=== PATIENT | female | born 1960 | race Caucasian/White ===

== ENCOUNTER 2018-07-25 13:30 | Inpatient (IN) | payer BC ==
[2018-08-08] MEDS ORDERED: ACETAMINOPHEN 1,000 MG/100 ML BTL IV ONE (06:00)
[2018-08-08] MEDS ORDERED: VANCOMYCIN HCL 1,000 MG in DEXTROSE 5 % IN WATER 250 ML IVPB ONE ×2 (06:00)
[2018-08-08] MEDS ORDERED: MECLIZINE 25 MG TABLET PO ONE (06:00)
[2018-08-08] MEDS ORDERED: CEFAZOLIN 2 Gram 2 GM/50 ML BAG IVPB ONE (06:00)
[2018-08-08] MEDS ORDERED: METOCLOPRAMIDE 10 MG TABLET PO ONE (06:00)
[2018-08-08] MEDS ORDERED: FAMOTIDINE 20MG TABLET PO ONE (06:00)
[2018-08-08 10:40] LABS: ABO GROUP A; ANTIBODY SCREEN NEGATIVE (NEGATIVE); RH TYPE POSITIVE
[2018-08-08] MEDS ORDERED: TRAMADOL HCL 50 MG TABLET PO PRN (15:15)
[2018-08-08] MEDS ORDERED: BISACODYL 10 MG SUPP RC PRN (15:15)
[2018-08-08] MEDS ORDERED: HYDROCODONE/APAP 7.5/325MG TABLET PO PRN (15:15)
[2018-08-08] MEDS ORDERED: NALOXONE 0.4 MG/1 ML VIAL IVP PRN (15:15)
[2018-08-08] MEDS ORDERED: AL HYDROX/MAG HYDROX 30ML UD PO PRN (15:15)
[2018-08-08] MEDS ORDERED: HYDROMORPHONE HCL 2 MG/ML VIAL IM PRN (15:15)
[2018-08-08] MEDS ORDERED: METOCLOPRAMIDE HCL 10 MG/2 ML VIAL IVP PRN (15:15)
[2018-08-08] MEDS ORDERED: ACETAMINOPHEN W/ CODEINE 300MG/30MG TABLET PO PRN ×2 (15:15)
[2018-08-08] MEDS ORDERED: ZOLPIDEM TARTRATE 5 MG TABLET PO PRN (15:15)
[2018-08-08] MEDS ORDERED: DIPHENHYDRAMINE HCL 25 MG CAPSULE PO PRN (15:15)
[2018-08-08] MEDS ORDERED: PROMETHAZINE HCL 12.5 MG in 0.9 % SODIUM CHLORIDE 100ML 50 ML IVPB PRN (15:15)
[2018-08-08] MEDS ORDERED: KETOROLAC 30 MG/ML VIAL IVP PRN ×2 (15:15)
[2018-08-08] MEDS ORDERED: MAGNESIUM HYDROXIDE 30 ML UDC PO PRN (15:15)
[2018-08-08] MEDS ORDERED: ACETAMINOPHEN W/ CODEINE 300MG/60MG TABLET PO PRN ×2 (15:15)
[2018-08-08] MEDS ORDERED: HYDROCODONE/APAP 5/325MG TABLET PO PRN ×2 (15:15)
[2018-08-08] MEDS ORDERED: DEXTROSE 5 % AND 0.9 % NACL 1,000 ML IV PRN (15:30)
[2018-08-08] MEDS ORDERED: TRANEXAMIC ACID 1,000 MG/10 ML ML IV ONE (15:47)
[2018-08-08] MEDS ORDERED: BUPIVACAINE 0.5% W/EPI MPF 30 ML VIAL IVP ONE (15:47)
[2018-08-08] MEDS ORDERED: KETOROLAC 30 MG/ML VIAL IVP ONE (15:54)
[2018-08-08] MEDS ORDERED: EPHEDRINE SULFATE 50 MG/ML ML IV ONE (15:54)
[2018-08-08] MEDS ORDERED: PHENYLEPHRINE HCL 10 MG/ML VIAL IVP ONE (15:54)
[2018-08-08] MEDS ORDERED: MIDAZOLAM HCL 2MG/2ML VIAL IV ONE (15:54)
[2018-08-08] MEDS ORDERED: LIDOCAINE 2% MDV (20MG/ML) 20ML VIAL IV ONE (15:54)
[2018-08-08] MEDS ORDERED: PROPOFOL 10 MG/ML VIAL IV ONE (15:54)
[2018-08-08] MEDS: HYDROMORPHONE HCL 2 MG/ML VIAL IM PRN ×3 (17:15→21:45)
--- NOTE | 2018-08-08 17:29 | Rehab Evaluation ---
Patient Information - Patient Information Diagnosis: L hip OA Ordered Treatment: PT Evaluate and Treat Status: Initial Evaluation Surgery: Yes (L THR) Date of Surgery: 08/08/18 Past Medical/Surgical Hx: PAST MEDICAL/SURGICAL HISTORY Past Surgical History Abigail Hayes Laparoscopy Left knee scope cscope PMH - Respiratory Hx Respiratory Disorders Yes Hx Asthma Yes: well controlled with inhaler PMH - Cardiovascular Hx Cardiovascular Disorders Yes Hx Hypertension Yes: on meds good control Exercise Tolerance Fair PMH - Neuro Hx Neurological Disorders Yes Hx Dizziness Yes: at times PMH - GI Hx Gastrointestinal Disorders Yes Hx Crohn's Disease Yes: controlled with meds PMH - Hx Genitourinary Disorders Yes Hx Urinary Tract Infection Yes: UTI in that went septic Comment: S/P hyst 2004 PMH - Endocrine Hx Endocrine Disorders Yes Hx Thyroid Disease Yes: on meds PMH - Musculoskeletal Hx Musculoskeletal Disorders Yes Hx Arthritis Yes: RA PMH - Psych Hx Psychiatric Problems Yes Hx Depression Yes: on meds PMH - Hematology/Oncology Hx Hematology/Oncology No Disorders Premorbid Status: Detail (The patient was independent with all mobility prior to surgery.) Social History: Detail (The patient lives in a one story house with a loft and basement with spouse. The house has 2 to 3 steps at the enterance and a flight of 13 to go the loft and basement. Both flights have one railing to hang onto. The bathroom is equipped with a tub/shower combination , shower bench and standard toilet. The patient has a riser seat, front wheeled walker and SBQ.) Precautions: [place], Fall, Other (THR precautions.) - Time With Patient Total Time Spent With Patient (Min): 30 Treatment Procedures: Detail (Initial Evaluation, ther. activity) Subjective Information - Subjective Information Per Patient (The patient had no complaints of pain but did complain of lightheadness with sitting and standing.) Objective Data - Mental Status Patient Orientation: Oriented x3 - Visual Perception Appears within normal limits for therapeutic activities - ROM Not within normal limits (The patient's L hip AROM was within THR precautions. All other LE AROM is WNL.) - Strength/Tone Not within normal limits (The patient's R LE strength was not tested but was functional ie: pt. was able to complete a SLR. The patient's L LE strength was WNL.) - Bed Mobility Independent (The patient was independent with supine to and from sit transfer and scooting up in bed.) - Transfers Independent (The patient was independent with sit to and from stand transfer.) - Balance Balance Sitting: Good Balance Standing: Good - Sensation Intact - Gait Detail (The patient declined to ambulate at this time due to lightheadness and increased complaints of groin pain. The patient was instructed to ambulate with Nursing staff this pm if she needed to go to the bathroom.) Therapy Assessment - Therapy Assessment Detail (The patient was independent with bed mobility and transfers. The patient did not ambulate this afternoon due to symptoms of lightheadness. Feel the patient will progress well with mobility.) Patient Education - Patient Education Teaching Topic: Precautions (The patient was able to correctly identify all THR precautions.) Response: Return Demonstration Teaching Method: Discussion, Handout Teaching Recipient: Patient Barriers To Learning: None Problem List - Problem List Physical Therapy Problem List: Detail ( 1) Decreased L LE strength 2) Impaired ambulation s/p surgery) Goals - Goals Physical Therapy Goals: 1) The patient will ambulate independently with appropriate assistive device household distances. 2)The patient will ambulate on stairs using proper technique with supervision for safety. 3) The patient will be independent with THR HEP. Prognosis - Prognosis Good Plan - Plan Physical Therapy Plan: PT 1-2 sessions for gait training on levels and stairs and instruction in HEP.
[2018-08-08] MEDS: BREO (FLUTICASONE/VILANTEROL) 200MCG/25MCG INHALER INH SCH (21:36)
[2018-08-08] MEDS: ATORVASTATIN 20 MG TABLET PO SCH (21:45)
[2018-08-08] MEDS: FERROUS SULFATE 325 MG TAB PO SCH (21:45)
[2018-08-08] MEDS: VANCOMYCIN HCL 1,000 MG in DEXTROSE 5 % IN WATER 250 ML IVPB SCH ×2 (21:46)
[2018-08-08] MEDS: PANTOPRAZOLE SODIUM 40 MG TABLET PO SCH (21:52)
[2018-08-08] MEDS: DOCUSATE SODIUM 100 MG CAPSULE PO SCH (21:53)
[2018-08-09] MEDS: HYDROCODONE/APAP 7.5/325MG TABLET PO PRN ×2 (01:36→06:23)
[2018-08-09] MEDS: HYDROMORPHONE HCL 2 MG/ML VIAL IM PRN (04:22)
--- NOTE | 2018-08-09 05:11 | RADIOLOGY REPORT ---
EXAM: LEFT HIP HISTORY: POSTOP. TECHNIQUE: A single AP view of the left hip was performed. FINDINGS: The patient is status post left hip arthroplasty. No complicating process. IMPRESSION: STATUS POST LEFT HIP ARTHROPLASTY. NO COMPLICATING PROCESS. JOB NUMBER: [id number] MTDD
[2018-08-09] MEDS: LEVOTHYROXINE SODIUM 50 MCG TABLET PO SCH (06:23)
[2018-08-09] MEDS: PANTOPRAZOLE SODIUM 40 MG TABLET PO SCH ×2 (06:23→21:56)
[2018-08-09 06:47] LABS: HEMATOCRIT 35.1 % (35.0-47.0); HEMOGLOBIN 10.3 gm/dl (11.6-16.0)
[2018-08-09] MEDS: DOCUSATE SODIUM 100 MG CAPSULE PO SCH ×2 (09:39→21:57)
[2018-08-09] MEDS: FERROUS SULFATE 325 MG TAB PO SCH ×2 (09:42→21:56)
[2018-08-09] MEDS: CELECOXIB 100 MG CAPSULE PO SCH (09:42)
[2018-08-09] MEDS: ESCITALOPRAM 10 MG TABLET PO SCH (09:43)
[2018-08-09] MEDS: ATENOLOL 25 MG TABLET PO SCH (09:43)
[2018-08-09] MEDS: VANCOMYCIN HCL 1,000 MG in DEXTROSE 5 % IN WATER 250 ML IVPB SCH ×2 (09:43)
[2018-08-09] MEDS: RIVAROXABAN 10 MG TABLET PO SCH (09:43)
--- NOTE | 2018-08-09 09:45 | Physical Therapy Tx Note ---
Physical Therapy Tx Note - Treatment Note Tolerated: Fair Physical Therapy Tx Note: Detail (The patient was in bed and reported her pain was not too bad. The patient continues to feel lightheaded when sitting. The patient ambulated to bathroom (7 feet x 2 ) independently WBAT on the L LE. The patient experienced increased lightheadedness after ambulating. The patient completed THR exercises including gluteal sets, quad sets, hamstring sets, ankle pumps, supine hip abduction and heel slides. Will see patient later this pm to see how she is feeling.) Physical Therapy Problem List: Detail ( 1) Decreased L LE strength 2) Impaired ambulation s/p surgery) Physical Therapy Goals: 1) The patient will ambulate independently with appropriate assistive device household distances. 2)The patient will ambulate on stairs using proper technique with supervision for safety. 3) The patient will be independent with THR HEP. Physical Therapy Plan: PT 1-2 sessions for gait training on levels and stairs and instruction in HEP.
[2018-08-09] MEDS: ONDANSETRON HCL IV 4 MG/2 ML VIAL IVP PRN ×2 (10:31→17:19)
--- NOTE | 2018-08-09 10:36 | Rehab Evaluation ---
Patient Information - Patient Information Diagnosis: left hip avascular necrosis Ordered Treatment: OT Evaluate and Treat Status: Initial Evaluation Surgery: Yes (L THR) Date of Surgery: 08/08/18 Past Medical/Surgical Hx: PAST MEDICAL/SURGICAL HISTORY Past Surgical History Appy Hyst Laparoscopy Left knee scope cscope PMH - Respiratory Hx Respiratory Disorders Yes Hx Asthma Yes: well controlled with inhaler PMH - Cardiovascular Hx Cardiovascular Disorders Yes Hx Hypertension Yes: on meds good control Exercise Tolerance Fair PMH - Neuro Hx Neurological Disorders Yes Hx Dizziness Yes: at times PMH - GI Hx Gastrointestinal Disorders Yes Hx Crohn's Disease Yes: controlled with meds PMH - Hx Genitourinary Disorders Yes Hx Urinary Tract Infection Yes: UTI in that went septic Comment: S/P hyst 2004 PMH - Endocrine Hx Endocrine Disorders Yes Hx Thyroid Disease Yes: on meds PMH - Musculoskeletal Hx Musculoskeletal Disorders Yes Hx Arthritis Yes: RA PMH - Psych Hx Psychiatric Problems Yes Hx Depression Yes: on meds PMH - Hematology/Oncology Hx Hematology/Oncology No Disorders Premorbid Status: Detail (The patient was independent with all mobility, meal prep, laundry and home mgmt prior to surgery. Her spouse will be available to assist with IADLs after discharge.) Social History: Detail (The patient lives with spouse in a one story house with a loft, main level and basement. The house has 3 steps with horace railings at the entrance and a flight of 13 to go the loft. The bathroom is equipped with a tub/shower combination, shower bench and hand held shower and standard toilet with riser that has handles. She has a front wheeled walker and quad cane.) Precautions: [place], Fall, Other (THR precautions.) - Time With Patient Total Time Spent With Patient (Min): 50 Treatment Procedures: Detail (OT eval low complexity) Subjective Information - Subjective Information Per Patient Objective Data - Pain Pain Present: Yes (03/01) - Mental Status Patient Orientation: Oriented x3 - Visual Perception Appears within normal limits for therapeutic activities - ROM Within normal limits (Horace UE AROM WNL) - Strength/Tone Within normal limits (Horace UE strength WNL) - Coordination Appears within normal limits for therapeutic activities - Bed Mobility Independent (Ind with supine to sit.) - Transfers Independent (Ind with sit to stand from EOB.) - Balance Balance Sitting: Good Balance Standing: Good - Sensation Intact - ADL's/IADL's Detail (Pt educated and able to demonstrate learning of modified LE dressing techniques using filer metal patterns and sock aid while maintaining total hip precautions. She was able to doff slipper socks and don underwear, pants, socks and tennis shoes with adaptive equipment and verbal direction. Pt was vended a filer metal patterns. Reviewed shower and kitchen safety and modifications, pt verbalized understanding.) Therapy Assessment - Therapy Assessment Detail (Pt able to demonstrate Ind with modified LE dressing techniques using adaptive equipment while maintaining total hip precautions.) Problem List - Problem List Physical Therapy Problem List: Detail ( 1) Decreased L LE strength 2) Impaired ambulation s/p surgery) Occupational Therapy Problem List: Detail (No current IP OT problems identified. ) Goals - Goals Physical Therapy Goals: 1) The patient will ambulate independently with appropriate assistive device household distances. 2)The patient will ambulate on stairs using proper technique with supervision for safety. 3) The patient will be independent with THR HEP. Occupational Therapy Goals: No current IP OT goals identified. Prognosis - Prognosis Good Plan - Plan Physical Therapy Plan: PT 1-2 sessions for gait training on levels and stairs and instruction in HEP. Occupational Therapy Plan: No further IP OT recommended at this time. Thank you for this referral.
[2018-08-09] MEDS ORDERED: 0.9 % SODIUM CHLORIDE 1000ML 1,000 ML IV SCH (11:15)
--- NOTE | 2018-08-09 13:45 | Physical Therapy Tx Note ---
Physical Therapy Tx Note - Treatment Note Physical Therapy Tx Note: Detail (The patient was in bed with Nursing Staff present when PT arrived. The patient had just walked to bathroom and was experiencing level 9 pain and continued to be lightheaded. Will plan on seeing patient tomorrow .) Physical Therapy Problem List: Detail ( 1) Decreased L LE strength 2) Impaired ambulation s/p surgery) Physical Therapy Goals: 1) The patient will ambulate independently with appropriate assistive device household distances. 2)The patient will ambulate on stairs using proper technique with supervision for safety. 3) The patient will be independent with THR HEP. (Goal Met) Physical Therapy Plan: PT 1-2 sessions for gait training on levels and stairs and instruction in HEP.
[2018-08-09] MEDS ORDERED: BUPIVACAINE 0.5% W/EPI MPF 30 ML VIAL IVP ONE ×2 (14:35→14:36)
[2018-08-09] MEDS ORDERED: VANCOMYCIN HCL 1 GM VIAL IVPB ONE ×2 (14:35→14:36)
[2018-08-09] MEDS ORDERED: TRANEXAMIC ACID 1,000 MG/10 ML ML IV ONE ×2 (14:35→14:36)
[2018-08-09] MEDS ORDERED: BUPIVACAINE LIPOSOME 266MG/20ML VIAL IV ONE ×2 (14:35→14:36)
[2018-08-09] MEDS: TRAMADOL HCL 50 MG TABLET PO PRN (19:59)
--- NOTE | 2018-08-09 20:53 | Operative Note ---
DATE OF SURGERY: 08/08/2018 PREOPERATIVE DIAGNOSIS: LEFT HIP AVASCULAR NECROSIS SECONDARY TO STEROID USE; TREATMENT FOR CROHN'S. POSTOPERATIVE DIAGNOSIS: LEFT HIP AVASCULAR NECROSIS SECONDARY TO STEROID USE; TREATMENT FOR CROHN'S. PROCEDURE: LEFT TOTAL HIP ARTHROPLASTY. SURGEON: NIKO ROMANO M.D. 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 COMPLICATIONS: NONE. BLOOD LOSS: 200 ML. OPERATIVE FINDINGS: SOFT SUPERIOR FEMORAL HEAD ARTICULAR SURFACE WITHOUT COMPLETE COLLAPSE. COMPONENTS PLACED: 2 gm Vancomycin. Cement. [employer] Synergy cemented total hip arthroplasty system. Size 12 femoral stem high-offset with a 32 -3 mm Oxinium femoral head component, a 50 mm three-hole reflection acetabular shell component with two screw caps, a centrally threaded screw cap, and a 35 degree hooded high-crosslinked polyethylene liner. INDICATIONS FOR OPERATION: This is a 58-year-old female who has a long complicated history of inflammatory disease. She has previously been diagnosed with Crohn's. She was transferred up from [facility] months ago. I was cardiac catheterization technician and was consulted. She had multiple inflammatory workup and labs, which were all basically positive; HLA-B27, rheumatoid factor, sed rate and white count has been elevated on and off. She was thought to possibly have infection early on. She was getting IV antibiotics and treated outpatient IV for an additional six more weeks of IV antibiotics. I felt that it likely was not infectious at all, but inflammatory. MRI as well during her hospital stay showed avascular necrosis in the femoral head. She complained of achy pain and limping this entire time and I felt that one option for her would be hip replacement at this point and she agreed to proceed. I explained all the risks and benefits thoroughly in detail for her diagnosis and procedures including but not limited to infection, nerve injury, vessel injury, persistent pain, persistent numbness and tingling in her hip, periprosthetic fracture, need for resection arthroplasty should the components become infected or loosened, nerve injury, vessel injury, blood clot, limb length discrepancy, and need for anticoagulation and the risks associated with these medications and all of her questions were answered. Rehab and course were outlined and she agreed to proceed. PROCEDURE: The patient was brought to the O.R. and placed in the right lateral decubitus position. Her left hip and lower extremity were prepped and draped in sterile fashion. Her left leg was prepped again with ChloraPrep after it was draped. Intraoperative time-out was performed. Next, with a posterior approach, a small incision was marked over the gluteal fascia and infiltrated with 0.5% Marcaine with Epinephrine. Next, the skin and subcutaneous tissues were dissected down to the gluteal fascia. The gluteal fascia was split longitudinally and the subgluteal plane was bluntly dissected. We brought in a self-retainer. I identified the sciatic nerve, took off the short external rotators and protected the sciatic nerve at all times. Next, we dislocated the femoral head. we resected about 1.5 cm above the lesser trochanter. We inserted the boxed osteotome and then started reaming by hand with a 7 mm working in 1 mm increments by power up to a size 12. We stopped there. We broached to 10 and calcar planed in 15 degrees of anteversion, then an 11 and then a 12 and had good fit there and we stopped there. Attention was turned to the acetabulum. We placed the inferior acetabular retractor. We released the labrum and capsule around the circumference of the hip and started reaming in 1 mm increments in 45 degrees of inclination and 20 degrees of anteversion until we reamed up to a size 49. We stopped there and trialed a 50 and had a good fit. Next, we changed gloves. Irrigated copiously. We placed some bone graft centrally and impacted down the real acetabular shell component using the helicopter guide, again in 45 of inclination and 20 degrees of anteversion until it was flush with the medial wall. We verified its orientation. Next we drilled the posterior central and superior quadrant screw hole and we inserted a 40 mm screw and had excellent purchase. Next, we placed the trial liner and did a trial reduction. The best combination of range of motion and stability was with a 32 -3 mm head component. This allowed for good abductor tensioning without over-stuffing. Flexion to 90 and internal rotation to 80 before the hip dislocated. Stability with extension in external rotation and symmetric leg lengths and this was the sizes we used. Next, we mixed cement. We removed all trial components. We irrigated the acetabulum copiously. We placed the two screw caps and the centrally threaded screw cap. We impacted down the real acetabular liner with the ellis in the posterior superior quadrant. We irrigated the femoral canal copiously. We placed a cement restrictor distally at appropriate depth and injected the cement in the 3rd generation cement technique. We removed the suction catheter and impacted down the real femoral stem with the collar flush to the medial calcar in 15 degrees of anteversion and held it there until the cement hardened. Next, we cleaned and dried the trunnion. We impacted down the real femoral head component. We re-reduced the hip. Final range of motion revealed the same. We irrigated the hip copiously. We repaired the gluteal fascia with a running # 2 Quill suture. We irrigated again and closed the skin deep with interrupted #2- 0 Vicryl securely and a sterile dressing was applied. A KEMAR dressing to be applied prior to discharge. The patient tolerated the procedure well. No intraoperative complications. All sponge, needle, and blade counts were correct. She will be discharged tomorrow and follow-up in two weeks. cc: Dipesh Curry JOB NUMBER: [id number] MTDD
[2018-08-09] MEDS: BREO (FLUTICASONE/VILANTEROL) 200MCG/25MCG INHALER INH SCH (21:45)
[2018-08-09] MEDS: ATORVASTATIN 20 MG TABLET PO SCH (21:56)
[2018-08-10] MEDS: TRAMADOL HCL 50 MG TABLET PO PRN ×2 (00:18→06:00)
[2018-08-10] MEDS: PANTOPRAZOLE SODIUM 40 MG TABLET PO SCH ×2 (06:00→21:03)
[2018-08-10] MEDS: LEVOTHYROXINE SODIUM 50 MCG TABLET PO SCH (06:00)
[2018-08-10 06:49] LABS: HEMATOCRIT 32.5 % (35.0-47.0); HEMOGLOBIN 9.7 gm/dl (11.6-16.0)
[2018-08-10] MEDS: ACETAMINOPHEN 325 MG TAB PO PRN ×2 (10:45→17:13)
[2018-08-10] MEDS: DOCUSATE SODIUM 100 MG CAPSULE PO SCH ×2 (10:46→23:13)
[2018-08-10] MEDS: FERROUS SULFATE 325 MG TAB PO SCH ×2 (10:46→21:03)
[2018-08-10] MEDS: RIVAROXABAN 10 MG TABLET PO SCH (10:47)
[2018-08-10] MEDS: CELECOXIB 100 MG CAPSULE PO SCH (10:47)
[2018-08-10] MEDS: ATENOLOL 25 MG TABLET PO SCH (10:47)
[2018-08-10] MEDS: ESCITALOPRAM 10 MG TABLET PO SCH (10:47)
--- NOTE | 2018-08-10 11:41 | Physical Therapy Tx Note ---
Physical Therapy Tx Note - Treatment Note Tolerated: Fair Total Time Spent With Patient: 25 Physical Therapy Tx Note: Detail (The patient was in bed when PT arrived. The patient ambulated with front wheeled walker, WBAT on the L LE to bathroom 7 feet with 2L with supervision for safety and then ambulated a distance of 35 feet x 2 . The patient returned to bed with O2 level at 87, level returned to 92 after less then 15 secs and with pursed lip breathing. The patient exhibited minimal shortness of breath with ambulation and minimal symptoms of lightheadedness. Will see patient this pm for ambulation/stair climbing.) Physical Therapy Problem List: Detail ( 1) Decreased L LE strength 2) Impaired ambulation s/p surgery) Physical Therapy Goals: 1) The patient will ambulate independently with appropriate assistive device household distances. 2)The patient will ambulate on stairs using proper technique with supervision for safety. 3) The patient will be independent with THR HEP. Physical Therapy Plan: PT 1-2 sessions for gait training on levels and stairs and instruction in HEP.
[2018-08-10 12:14] LABS: BLOOD UREA NITROGEN 12 mg/dL (6-20); CREATININE 0.7 mg/dL (0.5-0.9); EST GLOMERULAR FILTRATION RATE > 60 mL/min
[2018-08-10 12:15] LABS: TOTAL PROTEIN 5.6 g/dL (6.6-8.7)
[2018-08-10 12:17] LABS: GLUCOSE,RANDOM 70 mg/dL (74-109)
[2018-08-10 12:20] LABS: ALB/GLOB RATIO 1.1 (1.1-1.8); ALBUMIN 2.9 g/dL (4.0-5.0); ALKALINE PHOSPHATASE 63 U/L (35-104); ALT/SGPT 50 U/L (<33); AST/SGOT 35 U/L (10.0-35.0)
--- NOTE | 2018-08-10 14:49 | Physical Therapy Tx Note ---
Physical Therapy Tx Note - Treatment Note Tolerated: Good Total Time Spent With Patient: 25 Physical Therapy Tx Note: Detail (The patient was in bed when PT arrived. The patient ambulated with front wheeled walker a distance of 100 feet x 1 with 2L of O2 , WBAT on the L LE with supervision for safety only. The patient had minimal shortness of breath with ambulation and stated she had a slight feeling of lightheadedness. The patient's O2 sat's remained in the 90's with one brief drop to 89. The patient's performance was much improved with increased ambulation endurance. The patient declined stairs. Will see patient tomorrow for gait training on stairs.) Physical Therapy Problem List: Detail ( 1) Decreased L LE strength 2) Impaired ambulation s/p surgery) Physical Therapy Goals: 1) The patient will ambulate independently with appropriate assistive device household distances. 2)The patient will ambulate on stairs using proper technique with supervision for safety. 3) The patient will be independent with THR HEP. Physical Therapy Plan: PT 1-2 sessions for gait training on levels and stairs.
--- NOTE | 2018-08-10 16:15 | Consult ---
Consult Order Detail - Reason for Consult Consult Date: 08/10/18 - Chief Complaint Chief Complaint: LEFT HIP AVASCULAR NECROSIS HPI Consult - History of Present Illness Admitting Diagnosis: left hip avascular necrosis History of Present Illness: Mrs. Camargo is a 58 y/o female with admission for replacement of her left hip secondary to avascular necrosis. The patient had athroplasty procedure completed on 08/08/18. On day #3 admission the patient was noted to have increasing difficulty with respiration with saturations dropping into the 80s despite being on supplemental oxygen. The patient has been on several narcotic pain medications post-operatively, the frequency of which have now been reduced as a result of her breathing issues. The patient has been using the bedside spirometer and is continuing to get have daily doses of inhaled steroids/ bronchodilator. The patient reports having a history of asthma with daily use of Symbicort but says that she has not had an exacerbation in some time. She has a remote history of cigarette smoking and says she quit several years and reports a recent diagnosis of rheumatoid arthritis. On initial evaluation this afternoon the patient had an elevated d-dimer 1.[address] with PE protocol was ordered with no findings suggestive of PE. However , she did have a small pleural effusion and note of a small pericardial effusion. Internal medicine was consulted to assess the patient's low oxygen saturations and respiratory status. Past Medical History - SOCIAL HISTORY Smoking Status: Former smoker Drug Use: None - RESPIRATORY Hx Respiratory Disorders: Yes Hx Asthma: Yes (well controlled with inhaler) - CARDIOVASCULAR Hx Cardio Disorders: Yes Hx Hypertension: Yes (on meds good control) - NEURO Hx Neuro Disorders: Yes Hx Dizziness: Yes (at times) - GI Hx GI Disorders: Yes Hx Crohn's Disease: Yes (controlled with meds) - Hx Genitourinary Disorders: Yes Hx UTI: Yes (UTI in that went septic) Comment:: S/P hyst 2004 - ENDOCRINE Hx Endocrine Disorders: Yes Hx Thyroid Disease: Yes (on meds) - MUSCULOSKELETAL Hx Musculoskeletal Disorders: Yes Hx Arthritis: Yes (RA) - PSYCH Hx Psych Problems: Yes Hx Depression: Yes (on meds) - HEMATOLOGY/ONCOLOGY Hx Hematology/Oncology Disorders: No Family Medical History Any Significant Family History?: No H&P Meds - Home Medications and Allergies Allergies Allergy/AdvReac Type Severity Reaction Status Date / Time Sulfa (Sulfonamide Allergy HIVES Verified 07/25/18 15:28 Antibiotics) diphenhydramine AdvReac RASH Verified 07/25/18 15:28 [From Benadryl] Physical Exam - Vital Signs Vital Signs: Vital Signs - Last 24 Hrs Temp Pulse Pulse Resp BP BP Pulse Ox 08/10/18 13:00 98.1 F 91 H 16 104/66 97 08/10/18 09:30 95 08/10/18 09:00 18 08/10/18 08:45 98.3 F 106 H 18 101/72 93 L 08/10/18 05:00 99.7 F H 102 H 16 100/63 94 L 08/09/18 21:50 78 18 96 08/09/18 21:00 97.3 F L 95 H 16 96/68 96 08/09/18 17:10 16 93 L 08/09/18 17:00 100 H 14 92/63 85 L - General General Appearance: Alert, Oriented x3, Cooperative, No acute distress - Head Head exam: Normal inspection Head exam detail: negative: Abrasion, Contusion - Eye Eye exam: Normal appearance, PERRL Pupils: Normal accommodation - Respiratory Respiratory exam: Normal lung sounds bilaterally, Other (sats 92% on 2 liters nasal cannula ). negative: Respiratory distress - Cardiovascular Cardiovascular Exam: Regular rate, Normal rhythm, Normal heart sounds Peripheral Pulses: 3+: Radial (R), Radial (L), Dorsalis Pedis (R), Dorsalis Pedis (L) - GI/Abdominal GI/Abdominal exam: Soft, Normal bowel sounds. negative: Tenderness - Neurological Neurological exam: CN II-XII intact, Oriented X3 - Psychiatric Psychiatric exam: Normal affect, Normal mood - Skin Skin exam: Dry, Intact, Normal color, Warm Results - Labs Result Diagrams: 08/10/18 06:27 08/10/18 06:27 Labs Last 24 Hours: Laboratory Results - last 24 hr 08/10/18 08/10/18 08/10/18 06:27 06:27 06:27 Hgb 9.7 L Hct 32.5 L D-Dimer 1.18 H Sodium 134 L Potassium 4.0 Chloride 97 L Carbon Dioxide 24.0 Anion Gap 13.0 BUN 12 Creatinine 0.7 Estimated GFR > 60 Random Glucose 70 L Calcium 8.5 L Total Bilirubin 0.50 AST 35 ALT 50 H Alkaline Phosphatase 63 Total Protein 5.6 L Albumin 2.9 L Globulin 2.7 Albumin/Globulin Ratio 1.1 Assessment and Plan - Assessment and Plan (1) Low oxygen saturation Current Visit: Yes Status: Acute Base Code: R79.81 - ABNORMAL BLOOD-GAS LEVEL Comment: 08/09/19: - titrate oxygen to keep saturations > 92% - continue with incentive spirometer, ambulation and daily PT/OT - reduce or discontinue narcotic pain medication and other sedative hypnotics. (2) Mild asthma exacerbation Current Visit: Yes Status: Acute Base Code: J45.901 - UNSPECIFIED ASTHMA WITH (ACUTE) EXACERBATION Comment: 08/09/19: - albuterol Q4h ARMANDO, Breo ellipta daily. - no indication for steroid or antibiotic use at this point. - will continue to monitor saturations and titrate oxygen accordingly. - Disposition Disposition: All other management as per the primary admitting team. Please call for any other questions or concerns.
--- NOTE | 2018-08-10 17:25 | Physical Therapy Tx Note ---
Physical Therapy Tx Note - Treatment Note Tolerated: Other (Decreased sat. levels when descending stairs (low as 65).) Total Time Spent With Patient: 30 Physical Therapy Tx Note: Detail (The patient ambulated with front wheeled walker WBAT on the L LE a distance of 40 feet x 1 with respiratory therapist monitoring patient's O2 sat. level. Patient required 4L of O2 to remain in the 90's. The patient required verbal cues to maintain proper pursed lip breathing technique. The patient ambulated on 3 steps with use of small base quad cane and railing using proper technique with CG for safety. Patient's O2 sat. dropped to 65 after the patient descended the steps. A chair was brought for patient to sit. RN and Respiratory were called and monitored the patient's O2 sat. level for the remainder of the treatment. The patient ambulated on stairs x 2 using proper technique with 6 L of O2 and verbal cues to purse lip breath. The patient then ambulated 40 feet to her room with O2 sat's remaining in the 90 's. The patient's and patient were instructed to have the patient not do the stairs to the loft but use a downstairs bed. PT will see the patient tomorrow for gait training on levels on stairs with emphasis on pursed lip breathing.) Physical Therapy Problem List: Detail ( 1) Decreased L LE strength 2) Impaired ambulation s/p surgery) Physical Therapy Goals: 1) The patient will ambulate independently with appropriate assistive device household distances. 2)The patient will ambulate on stairs using proper technique with supervision for safety. 3) The patient will be independent with THR HEP. Physical Therapy Plan: PT 2 times a day for gait training on levels and stairs.
[2018-08-10] MEDS: ALBUTEROL SULFATE (0.083%) 2.5 MG/3 ML NEB INH SCH ×2 (18:10→22:24)
[2018-08-10] MEDS: ATORVASTATIN 20 MG TABLET PO SCH (21:03)
[2018-08-10] MEDS: BREO (FLUTICASONE/VILANTEROL) 200MCG/25MCG INHALER INH SCH (22:21)
[2018-08-11] MEDS: TRAMADOL HCL 50 MG TABLET PO PRN ×2 (00:55→10:36)
[2018-08-11] MEDS: ACETAMINOPHEN 325 MG TAB PO PRN (05:11)
[2018-08-11] MEDS: LEVOTHYROXINE SODIUM 50 MCG TABLET PO SCH (06:04)
[2018-08-11] MEDS: PANTOPRAZOLE SODIUM 40 MG TABLET PO SCH (06:04)
[2018-08-11] MEDS: ALBUTEROL SULFATE (0.083%) 2.5 MG/3 ML NEB INH SCH ×2 (06:11→09:58)
[2018-08-11] MEDS: ASPIRIN 81 MG CHEWABLE TABLET PO SCH ×2 (08:42→10:37)
--- NOTE | 2018-08-11 09:00 | CT ANGIOGRAM REPORT ---
EXAM: CTA OF THE CHEST WITH CONTRAST HISTORY: CHEST PAIN, DIFFICULTY IN BREATHING. TECHNIQUE: CTA of the chest was performed after intravenous administration of 61 ml of Omnipaque 350 contrast material. Sagittal and coronal MIP images were performed on an independent workstation. FINDINGS: There is cardiomegaly. No mass or filling defect to suggest a pulmonary embolism. There is ectasia of the ascending thoracic aorta measuring 3.8 x 3.6 cm. No mediastinal or hilar lymphadenopathy. There is a large sliding type hiatal hernia with dilatation of the esophagus. There are small bilateral pleural effusions. The visualized upper abdominal structures are normal. IMPRESSION: 1. NO CTA FINDINGS SUGGESTIVE OF PULMONARY EMBOLISM. 2. LARGE SLIDING TYPE HIATAL HERNIA WITH DILATATION OF THE ESOPHAGUS. 3. SMALL BILATERAL PLEURAL EFFUSIONS AND CARDIOMEGALY WITH A SMALL PERICARDIAL EFFUSION. JOB NUMBER: [id number] MTDD
--- NOTE | 2018-08-11 09:31 | Physician Progress Note ---
Subjective - Date Date of Physician Progress Note: 08/11/18 - Subjective Subjective Comment: The patient is alert, awake and does not appear to be in respiratory distress on examination this morning. She says that she feels weak but denies shortness of breath or chest pain. She says says her pain is not as bad as it was yesterday and she has not been requiring as much pain medications. Objective - Vital Signs Vital Signs: Vital Signs - Last 24 Hrs Temp Pulse Pulse Resp BP Pulse Ox 08/11/18 06:13 90 16 08/11/18 06:12 89 16 93 L 08/11/18 04:00 97.5 F L 108 H 16 96/64 95 08/11/18 00:00 98.1 F 113 H 16 96/65 94 L 08/10/18 22:27 78 16 08/10/18 22:23 78 16 08/10/18 22:22 74 16 95 08/10/18 21:00 16 08/10/18 20:00 97.7 F 102 H 16 96/60 96 08/10/18 18:10 112 H 20 08/10/18 16:26 94 L 08/10/18 16:25 82 L 08/10/18 13:00 98.1 F 91 H 16 104/66 97 08/10/18 09:30 95 - General General Appearance: Alert, Oriented x3, Cooperative, No acute distress - Head Head exam: Normal inspection Head exam detail: negative: Abrasion, Contusion - Eye Eye exam: Normal appearance, PERRL Pupils: Normal accommodation - Respiratory Respiratory exam: Normal lung sounds bilaterally, Other (sats 92% on 2 liters nasal cannula ). negative: Respiratory distress - Cardiovascular Cardiovascular Exam: Regular rate, Normal rhythm, Normal heart sounds Peripheral Pulses: 3+: Radial (R), Radial (L), Dorsalis Pedis (R), Dorsalis Pedis (L) - GI/Abdominal GI/Abdominal exam: Soft, Normal bowel sounds. negative: Tenderness - Neurological Neurological exam: CN II-XII intact, Oriented X3 - Psychiatric Psychiatric exam: Normal affect, Normal mood - Skin Skin exam: Dry, Intact, Normal color, Warm Assessment and Plan - Assessment and Plan (1) Low oxygen saturation Current Visit: Yes Status: Acute Base Code: R79.81 - ABNORMAL BLOOD-GAS LEVEL Comment: 08/09/19: - CT-PE: negative for PE, small pleural effusion and small pericardial effusion. - Titrate oxygen to keep saturations > 92% - Continue with incentive spirometer, ambulation and daily PT/OT - Reduce or discontinue narcotic pain medication and other sedative hypnotics. - EKG: prolonged Qtc 452, no ST-T wave abnormalities noted, no alternans or indication of impending tamponade. - On post-op prophylactic dose of Xarelto daily. - Troponin negative x 1 (2) Mild asthma exacerbation Current Visit: Yes Status: Acute Base Code: J45.901 - UNSPECIFIED ASTHMA WITH (ACUTE) EXACERBATION Comment: 08/11/19: - albuterol Q4h ARMANDO, Breo ellipta daily. - no indication for steroid or antibiotic use at this point. - will continue to monitor saturations and titrate oxygen accordingly. - patient maintaining sats > 95% at rest but on ambulation declines to the 80s. - recommend pulmonary consult. (3) Tachycardia Current Visit: Yes Status: Acute Base Code: R00.0 - TACHYCARDIA, UNSPECIFIED Comment: 08/11/18: - Consistently tachycardic approximately 110-120. Denies chest pain/afebrile/ lytes/cbc WNL. - secured entrance monitor does not show any arrythmias. - EKG: sinus tach 112, prolonged Qtc 452 (4) Status post total hip replacement, left Current Visit: Yes Status: Acute Base Code: Z96.642 - PRESENCE OF LEFT ARTIFICIAL HIP JOINT Comment: 08/11/18: - 2/2 avascular necrosis. - management as per orthopedic surgery. - Disposition Disposition: Would recommended pulmonary/ Cardiology consult upon transfer. All other management as per the primary admitting team. Please call for any other questions or concerns. Results - Labs Result Diagrams: 08/10/18 06:27 08/10/18 06:27 Labs Last 24 Hours: Laboratory Results - last 24 hr 08/10/18 08/10/18 08/11/18 06:27 06:27 08:40 D-Dimer 1.18 H Sodium 134 L Potassium 4.0 Chloride 97 L Carbon Dioxide 24.0 Anion Gap 13.0 BUN 12 Creatinine 0.7 Estimated GFR > 60 Random Glucose 70 L Calcium 8.5 L Total Bilirubin 0.50 AST 35 ALT 50 H Alkaline Phosphatase 63 CK-MB (CK-2) Troponin T < 0.010 Total Protein 5.6 L Albumin 2.9 L Globulin 2.7 Albumin/Globulin Ratio 1.1 08/11/18 08:40 D-Dimer Sodium Potassium Chloride Carbon Dioxide Anion Gap BUN Creatinine Estimated GFR Random Glucose Calcium Total Bilirubin AST ALT Alkaline Phosphatase CK-MB (CK-2) 1.2 Troponin T Total Protein Albumin Globulin Albumin/Globulin Ratio DVT/PE Assessment - Risk for VTE Risk for VTE: No Risk Level: High Risk Assessment Date: 08/11/18 Risk Assessment Time: 09:38 VTE Orders Placed or Will Be Placed: Yes - Active Medicaitons Current Medications: Current Medications Acetaminophen (Tylenol 325mg) 650 mg PO Q4H PRN PRN Reason: FEVER GT 101/HEADACHE Last Admin: 08/11/18 05:11 Dose: 650 mg Al Hydroxide/Mg Hydroxide (Maalox) 30 ml PO Q6H PRN PRN Reason: Indigestion/Heartburn Albuterol Sulfate (Albuterol Sulfate) 2.5 mg INH RESP.Q4H.[facility] Last Admin: 08/11/18 06:11 Dose: 2.5 mg Aspirin (Aspirin Chewable) 324 mg PO DAILY [facility] Last Admin: 08/11/18 08:42 Dose: 324 mg Atenolol (Tenormin) 25 mg PO DAILY [facility] Last Admin: 08/10/18 10:47 Dose: Not Given Atorvastatin Calcium (Lipitor) 20 mg PO QHS [facility] Last Admin: 08/10/18 21:03 Dose: 20 mg Bisacodyl (Dulcolax) 10 mg RC DAILY PRN PRN Reason: CONSTIPATION Celecoxib (Celebrex) 200 mg PO DAILY [facility] Last Admin: 08/10/18 10:47 Dose: Not Given Docusate Sodium (Colace) 100 mg PO BID [facility] Last Admin: 08/10/18 23:13 Dose: Not Given Escitalopram Oxalate (Lexapro) 10 mg PO DAILY [facility] Last Admin: 08/10/18 10:47 Dose: 10 mg Ferrous Sulfate (Iron) 325 mg PO BID [facility] Last Admin: 08/10/18 21:03 Dose: 325 mg Dextrose/Sodium Chloride () 1,000 mls @ 125 mls/hr IV .Q8H PRN PRN Reason: LARGE VOLUME IV Last Admin: 08/08/18 18:38 Dose: 125 mls/hr Promethazine HCl 12.5 mg/ (Sodium Chloride) 50.5 mls @ 200 mls/hr IVPB Q6H PRN PRN Reason: NAUSEA Ketorolac Tromethamine (Toradol) 30 mg IVP ONCE PRN PRN Reason: PAIN - SEVERE (8-10) Ketorolac Tromethamine (Toradol) 15 mg IVP ONCE PRN PRN Reason: PAIN - MODERATE (5-7) Stop: 08/13/18 15:16 [facility] Last Admin: 08/11/18 06:04 Dose: 50 mcg Magnesium Hydroxide (Milk Of Magnesium) 30 ml PO DAILY PRN PRN Reason: Constipation Metoclopramide HCl (Reglan) 10 mg IVP Q6H PRN PRN Reason: NAUSEA/VOMITING Last Admin: 08/09/18 21:01 Dose: 10 mg Naloxone HCl (Narcan) 0.4 mg IVP ONCE PRN PRN Reason: RR less then 8 or unresponsive Ondansetron HCl (Zofran) 4 mg IVP Q4H PRN PRN Reason: NAUSEA Last Admin: 08/09/18 17:19 Dose: 4 mg Pantoprazole Sodium (Protonix) 40 mg PO 0700,2200 [facility] Last Admin: 08/11/18 06:04 Dose: 40 mg Rivaroxaban (Xarelto) 10 mg PO DAILY [facility] Last Admin: 08/10/18 10:47 Dose: 10 mg Tramadol HCl (Ultram) 50 mg PO Q4H PRN PRN Reason: PAIN - MILD TO MODERATE (1-7) Tramadol HCl (Ultram) 100 mg PO Q4H PRN PRN Reason: PAIN - MILD TO MODERATE (1-7) Last Admin: 08/11/18 00:55 Dose: 100 mg Zolpidem Tartrate (Ambien) 5 mg PO QHS PRN PRN Reason: INSOMNIA AMI Plan - Labs Result Diagrams: 08/10/18 06:27 08/10/18 06:27
[2018-08-11] MEDS: CELECOXIB 100 MG CAPSULE PO SCH ×2 (10:36→10:40)
[2018-08-11] MEDS: DOCUSATE SODIUM 100 MG CAPSULE PO SCH (10:36)
[2018-08-11] MEDS: ATENOLOL 25 MG TABLET PO SCH (10:37)
[2018-08-11] MEDS: RIVAROXABAN 10 MG TABLET PO SCH (10:37)
[2018-08-11] MEDS: ESCITALOPRAM 10 MG TABLET PO SCH (10:37)
[2018-08-11] MEDS: FERROUS SULFATE 325 MG TAB PO SCH (10:37)
--- NOTE | 2018-08-11 10:52 | Physical Therapy Tx Note ---
Physical Therapy Tx Note - Treatment Note Tolerated: Fair Total Time Spent With Patient: 15 Physical Therapy Tx Note: Detail (Patient was reclined in bed upon therapists arrival, had just completed respiratory treatment. Patient states feeling okay today, rated L hip pain 5/10. Patient transferred supine to sit independently. Patient transferred sit to and from stand CGA x1. Patient ambulated 102 feet with wheeled walker CGA x1 with 4L portable oxygen, assist x1 to manage oxygen tank and wheelchair. Patient transferred sit to supine independently. Patient tolerated treatment well. Patient reports some dizziness after ambulation while sitting on the edge of the bed. Patient was left reclined in bed with call light within reach, cold pack replenished.) Physical Therapy Problem List: Detail ( 1) Decreased L LE strength 2) Impaired ambulation s/p surgery) Physical Therapy Goals: 1) The patient will ambulate independently with appropriate assistive device household distances. 2)The patient will ambulate on stairs using proper technique with supervision for safety. 3) The patient will be independent with THR HEP. Prognosis: Good Physical Therapy Plan: Pt may be transferred to [facility] this afternoon.
== END 2018-08-11 12:01 | disposition short-term general hospital (02) | DRG 470 ==
LOC: MEDSURG 08-08 09:42 → EDSTATUS 08-08 10:00
PROVIDERS: ADMIT Orthopaedic Surgery; ATTEND Orthopaedic Surgery
PROC: 0SRB069 Replacement of Left Hip Joint with Oxidized Zirconium on Polyethylene Synthetic Substitute, Cemented, Open Approach (ICD-10-PCS; principal; 2018-08-08 12:00)
DX: M87.352 Other secondary osteonecrosis, left femur (principal); J45.901 Unspecified asthma with (acute) exacerbation; I97.191 Other postprocedural cardiac functional disturbances following other surgery; K50.90 Crohn's disease, unspecified, without complications; Z87.891 Personal history of nicotine dependence; E78.00 Pure hypercholesterolemia, unspecified; J44.9 Chronic obstructive pulmonary disease, unspecified
CPT/HCPCS: 71275; 80053; 82553; 84484; 85014; 85018; 85379; 86850; 86900; 86901; 93005; 94010; 94618; 94640; 94760; 94761; 97110; 97530; 99233; 99253; C1776; J1885; J2370; J2405; J2765; J7030; J7042; J7060; J7613